=== PATIENT | male | born 1980 | race Caucasian/White ===

== ENCOUNTER 2017-11-09 04:26 | Emergency (ER) | payer OTHER ==
[~2017-11-09] VITALS: Ht 177.8 cm; Wt 100.0 kg
[~2017-11-09 04:26] MED LIST: LORC10TA PO; NABU500T PO; Z.0.NO CURRENT MEDS
[2017-11-09 04:30] VITALS: BP 143/77; PULSE 57; RESP 18; TEMP 98.2; O2SAT 100
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
[2017-11-09] MEDS ORDERED: AMOX500T PO (06:03)
[2017-11-09] MEDS ORDERED: TRAM50TA PO (06:03)
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
== END 2017-11-09 06:19 | disposition home or self-care (01) ==
LOC: NEPE 04:26
DX: S02.32XA Fracture of orbital floor, left side, initial encounter for closed fracture (principal); S02.2XXA Fracture of nasal bones, initial encounter for closed fracture; Y04.0XXA Assault by unarmed brawl or fight, initial encounter
CPT/HCPCS: 70450; 70486